=== PATIENT | female | born 1990 | race Caucasian/White ===

== ENCOUNTER 2022-06-19 15:00 | Outpatient (CLI) | payer OTHER, SELFPAY | END 2022-06-19 15:01 | disposition home or self-care (01) | LOC: NFLDREF 15:00 | PROVIDERS: Visit Provider Obstetrics & Gynecology | DX: Z01.419 Encounter for gynecological examination (general) (routine) without abnormal findings (principal); Z12.4 Encounter for screening for malignant neoplasm of cervix; Z11.51 Encounter for screening for human papillomavirus (HPV); F32.A Depression, unspecified; F41.9 Anxiety disorder, unspecified | CPT/HCPCS: 87624; 88175 ==